=== PATIENT | female | born 1995 | race Caucasian/White ===

== ENCOUNTER → 2016-09-21 | Outpatient (CLI) | payer OTHER ==
[2016-09-21 07:40] LABS: ALBUMIN 4.1 g/dL (3.4-5.0); ALBUMIN/GLOBULIN RATIO 1.1 (1.0-1.7); CALCIUM 9.4 mg/dL (8.5-10.1); CREATININE 0.7 mg/dL (0.6-1.0); GFR 103.7; POTASSIUM 4.3 mmol/L (3.5-5.1); TOTAL BILIRUBIN 0.3 mg/dL (0.2-1.0); TOTAL PROTEIN 7.9 g/dL (6.4-8.2)
[2016-09-21 13:24] LABS: FREE T4 0.81 ng/dL (0.76-1.46); THYROID STIM HORMONE (TSH) 2.929 uIU/mL (0.358-3.740)
[2016-09-22 01:11] LABS: HEMOGLOBIN A1C 5.1 % (4.8-5.6)
== END | disposition home or self-care (01) ==
LOC: LAB 06:45
PROVIDERS: ATTEND Nurse Practitioner Family
DX: R73.9 Hyperglycemia, unspecified (principal); R63.5 Abnormal weight gain
CPT/HCPCS: 36415; 80053; 83036; 83525; 84439; 84443

== ENCOUNTER → 2018-06-23 | Outpatient (CLI) | payer OTHER ==
[2018-06-23 14:20] LABS: BASO % 1 % (0-3); EOS # 0.2 x10^3/uL (0.0-0.7); EOS % 3 % (0-3); HEMOGLOBIN 12.6 g/dL (12.0-15.5); LYMPH % 29 % (24-48); MEAN CORPUSCULAR HEMOGLOBIN 30 pg (25-35); MEAN CORPUSCULAR HGB CONC 35 g/dL (31-37); MEAN CORPUSCULAR VOLUME 86 fL (79-100); MONO # 0.3 x10^3/uL (0.0-1.1); MONO % 4 % (0-9); NEUT # 4.5 x10^3uL (1.8-7.7); NEUT % 64 % (31-73); PLATELET COUNT 239 x10^3/uL (140-400); RED CELL DISTRIBUTION WIDTH 12.5 % (11.5-14.5); WHITE BLOOD COUNT 6.9 x10^3/uL (4.0-11.0)
[2018-06-23 14:36] LABS: ALBUMIN 4.1 g/dL (3.4-5.0); ALBUMIN/GLOBULIN RATIO 1.1 (1.0-1.7); CALCIUM 9.1 mg/dL (8.5-10.1); CREATININE 0.8 mg/dL (0.6-1.0); GFR 87.4; POTASSIUM 3.9 mmol/L (3.5-5.1); TOTAL BILIRUBIN 0.3 mg/dL (0.2-1.0); TOTAL PROTEIN 7.7 g/dL (6.4-8.2)
[2018-06-23 15:01] LABS: BILIRUBIN,URINE NEG (NEG); CLARITY,URINE CLEAR; COLOR,URINE YELLOW; GLUCOSE,URINE NEG (NEG)
[2018-06-23 15:02] LABS: BACTERIA,URINE 0 /HPF (0-FEW); NITRITE,URINE NEG (NEG); RBC,URINE RARE /HPF (0-2); SQUAMOUS EPITHELIAL CELL,UR OCC /LPF; UROBILINOGEN,URINE 0.2 mg/dL (0.2 mg/dL)
== END | disposition home or self-care (01) ==
LOC: LAB 12:19
PROVIDERS: ATTEND Family Medicine
DX: N39.0 Urinary tract infection, site not specified (principal)
CPT/HCPCS: 36415; 80053; 81001; 82150; 83690; 84702; 85025

== ENCOUNTER → 2018-08-11 | Outpatient (CLI) | payer OTHER | END | disposition home or self-care (01) | LOC: LAB 12:20 | PROVIDERS: ATTEND Internal Medicine | DX: J02.0 Streptococcal pharyngitis (principal) | CPT/HCPCS: 87070; 87880 ==

== ENCOUNTER → 2019-01-02 | Outpatient (CLI) | payer OTHER ==
[2019-01-02 18:08] LABS: HEMATOCRIT 38.9 % (36.0-47.0); HEMOGLOBIN 13.3 g/dL (12.0-15.5); RED BLOOD COUNT 4.49 x10^6/uL (3.50-5.40); RED CELL DISTRIBUTION WIDTH 12.7 % (11.5-14.5); WHITE BLOOD COUNT 6.7 x10^3/uL (4.0-11.0)
[2019-01-02 18:15] LABS: ALBUMIN 4.2 g/dL (3.4-5.0); ALBUMIN/GLOBULIN RATIO 1.2 (1.0-1.7); CALCIUM 9.3 mg/dL (8.5-10.1); CREATININE 0.8 mg/dL (0.6-1.0); GFR 87.4; POTASSIUM 3.8 mmol/L (3.5-5.1); TOTAL BILIRUBIN 0.3 mg/dL (0.2-1.0); TOTAL PROTEIN 7.7 g/dL (6.4-8.2)
[2019-01-03 13:10] LABS: FREE T4 0.8 ng/dL (0.76-1.46); THYROID STIM HORMONE (TSH) 1.445 uIU/mL (0.358-3.740)
== END | disposition home or self-care (01) ==
LOC: LAB 16:49
PROVIDERS: ATTEND Nurse Practitioner Family
DX: R53.83 Other fatigue (principal)
CPT/HCPCS: 36415; 80053; 82607; 82746; 83540; 83550; 84439; 84443; 85027

== ENCOUNTER → 2019-09-25 | Outpatient (CLI) | payer OTHER | END | disposition home or self-care (01) | LOC: LAB 14:31 | PROVIDERS: ATTEND Internal Medicine Cardiovascular Disease | DX: Z20.828 Contact with and (suspected) exposure to other viral communicable diseases (principal) | CPT/HCPCS: 36415; U0003 ==

== ENCOUNTER → 2021-04-07 | Outpatient (CLI) | payer OTHER ==
[2021-04-07 12:04] LABS: BASO % 1 % (0-3); EOS % 1 % (0-3); HEMATOCRIT 36.5 % (36.0-47.0); HEMOGLOBIN 12.7 g/dL (12.0-15.5); LYMPH # 1.8 x10^3/uL (1.0-4.8); LYMPH % 24 % (24-48); MEAN CORPUSCULAR HEMOGLOBIN 30 pg (25-35); MEAN CORPUSCULAR HGB CONC 35 g/dL (31-37); MEAN CORPUSCULAR VOLUME 86 fL (79-100); MONO # 0.4 x10^3/uL (0.0-1.1); MONO % 5 % (0-9); NEUT # 5.3 x10^3uL (1.8-7.7); NEUT % 70 % (31-73); PLATELET COUNT 235 x10^3/uL (140-400); RED BLOOD COUNT 4.23 x10^6/uL (3.50-5.40); RED CELL DISTRIBUTION WIDTH 13.3 % (11.5-14.5); WHITE BLOOD COUNT 7.5 x10^3/uL (4.0-11.0)
[2021-04-07 12:50] LABS: ALBUMIN 4.3 g/dL (3.4-5.0); ALBUMIN/GLOBULIN RATIO 1.2 (1.0-1.7); CALCIUM 9.4 mg/dL (8.5-10.1); CREATININE 0.8 mg/dL (0.6-1.0); GFR 85.4; POTASSIUM 3.9 mmol/L (3.5-5.1); TOTAL BILIRUBIN 0.3 mg/dL (0.2-1.0); TOTAL PROTEIN 7.9 g/dL (6.4-8.2)
[2021-04-07 20:22] LABS: FREE T4 0.86 ng/dL (0.76-1.46); THYROID STIM HORMONE (TSH) 0.749 uIU/mL (0.358-3.740)
[2021-04-07 23:23] LABS: T3 TOTAL 103 ng/dL (71-180); TESTOSTERONE TOTAL 29 ng/dL (13-71); THYROXINE 6.1 ug/dL (4.5-12.0)
[2021-04-08 02:09] LABS: THYROPEROXIDASE ANTIBODY <8 IU/mL (0-34)
== END ==
LOC: LAB 08:35
PROVIDERS: ATTEND Obstetrics & Gynecology
DX: Z01.419 Encounter for gynecological examination (general) (routine) without abnormal findings (principal); R53.83 Other fatigue; E34.9 Endocrine disorder, unspecified
CPT/HCPCS: 80053; 82607; 82652; 83001; 84144; 84403; 84436; 84439; 84443; 84480; 85025; 86376